=== PATIENT | female | born 1985 | race Hispanic/Latino ===

== ENCOUNTER 2022-05-02 22:41 | Emergency (ER) | payer MEDICAID ==
[~2022-05-02] VITALS: Ht 157.5 cm; Wt 100.9 kg
[~2022-05-02 22:41] MED LIST: AMOXICILLIN500 MG PO; IBUPROFEN600 MG PO; PRENATABS PO; PRENATAL PO
[2022-05-02 23:01] VITALS: BP 137/67
[2022-05-02 23:16] VITALS: BP 121/68
[2022-05-02 23:31] VITALS: BP 128/72
[2022-05-02 23:46] VITALS: BP 126/62
[2022-05-02 23:51] LABS: BASO% 0.2 % (0-3); EOS% 1.7 % (0-8); HEMATOCRIT 37.6 % (37.0-47.0); HEMOGLOBIN 12.1 g/dl (12.0-16.0); IMMATURE GRANULOCYTES 0.8 % (0.0-5.0); LYMPH% 18.1 % (15-41); MEAN CELL VOLUME 89.7 fL CALC (80.0-100.0); MEAN CORPUSCULAR HGB 28.9 pG CALC (26.0-32.0); MEAN CORPUSCULAR HGB CONC 32.2 g/dL CAL (32.0-36.0); MONO% 6.9 % (2-13); NEUT# 6.69 thou/uL (2.00-7.15); NEUT% 72.3 % (42-76); RED BLOOD COUNT 4.19 mill/uL (4.20-5.60); RED CELL DISTRI WIDTH 12.8 % (11.5-15.5)
[2022-05-03 00:01] VITALS: BP 110/58
[2022-05-03 00:02] LABS: ALBUMIN 4.2 g/dL (3.2-5.0); ALKALINE PHOSPHATASE 162 u/l (38-126); ANION GAP 11 (6-22 (CALC)); BILIRUBIN, TOTAL 0.3 mg/dL (0.0-1.4); BUN 11 mg/dL (7-17); BUN/CREATININE RATIO 16 (12-20 (CALC)); CARBON DIOXIDE 25 mmol/l (22-30); CHLORIDE 106 mmol/l (95-108); CREATININE 0.7 mg/dL (0.5-1.0); GFR FOR AFR.AMER. > 60 ML/MIN (>=60 (CALC)); GFR OTHER RACES > 60 ML/MIN (>=60 (CALC)); LIPASE 80 u/l (23-300); POTASSIUM 3.6 mmol/l (3.5-5.1); SGOT/AST 38 u/l (14-36); SODIUM 139 mmol/l (137-146); TOTAL PROTEIN 7.6 g/dL (6.3-8.2)
[2022-05-03] MEDS ORDERED: PEPCID40 MG PO (01:43)
[2022-05-03 02:36] VITALS: BP 110/58
== END 2022-05-03 02:40 | disposition home or self-care (01) ==
LOC: ED 22:41
PROVIDERS: Family Medicine
DX: K29.70 Gastritis, unspecified, without bleeding (principal); K29.80 Duodenitis without bleeding
CPT/HCPCS: Q9967

== ENCOUNTER 2024-01-07 09:50 | Inpatient (IN) | payer MEDICAID ==
[2024-01-07] VITALS (14 sets, daily range): BP systolic 86–119; BP diastolic 33–69
[~2024-01-07] VITALS: Ht 157.5 cm; Wt 97.2 kg
[~2024-01-07 09:50] MED LIST changes: +PEPCID20 MG PO; +PEPCID40 MG PO
--- NOTE | 2024-01-07 09:53 | NUR ---
PT WALKED BACK TO ER ROOM 9 WITH A STEADY GAIT, NO DISTRESS NOTED
[2024-01-07 10:15] LABS: BASO% 0.1 % (0-3); HEMATOCRIT 38.7 % (37.0-47.0); HEMOGLOBIN 13.1 g/dl (12.0-16.0); IMMATURE GRANULOCYTES 0.5 % (0.0-5.0); LYMPH% 2.9 % (15-41); MEAN CELL VOLUME 86.6 fL CALC (80.0-100.0); MEAN CORPUSCULAR HGB 29.3 pG CALC (26.0-32.0); MEAN CORPUSCULAR HGB CONC 33.9 g/dL CAL (32.0-36.0); NEUT# 13.09 thou/uL (2.00-7.15); NEUT% 93.5 % (42-76); RED BLOOD COUNT 4.47 mill/uL (4.20-5.60); RED CELL DISTRI WIDTH 12.8 % (11.5-15.5)
[2024-01-07] MEDS ORDERED: cefTRIAXone SODIUM 2 GM in SODIUM CHLORIDE 0.9% 100 ML IV ONE (10:15)
[2024-01-07] MEDS ORDERED: SODIUM CHLORIDE 0.9% 1,000 ML IV ONE ×2 (10:20)
[2024-01-07] MEDS ORDERED: KETOROLAC TROMETHAMINE 30 MG/ML SDV IV ONE (10:20)
[2024-01-07] MEDS ORDERED: ONDANSETRON HCl 4 MG/2 ML SDV IV ONE (10:20)
[2024-01-07 10:28] LABS: CREATININE 0.8 mg/dL (0.5-1.0); POTASSIUM 3.3 mmol/l (3.5-5.1)
[2024-01-07 10:29] LABS: ALBUMIN 3.5 g/dL (3.2-5.0); BILIRUBIN, TOTAL 1.8 mg/dL (0.02-1.3); TOTAL PROTEIN 6.4 g/dL (6.3-8.2)
--- NOTE | 2024-01-07 10:35 | NUR ---
PT IN BED, VSS, CALL LIGHT WITHIN REACH, BLOOD CULTURES COLLECTED
--- NOTE | 2024-01-07 11:22 | NUR ---
PT BACK FROM CT, PTS FRIEND AT BEDSIDE, PT DENIES ANY NEEDS, VSS, CALL LIGHT WITHIN REACH, URINE SAMPLE COLLECTED
[2024-01-07 11:47] LABS: URINE BILIRUBIN - DIPSTICK Negative (NEGATIVE); URINE BLOOD DIPSTICK Moderate (NEGATIVE); URINE GLUCOSE - DIPSTICK 500 mg/dL (NEGATIVE); URINE KETONE Negative (NEGATIVE); URINE LEUK ESTERASE Trace (NEGATIVE); URINE PH 6.5 (4.5-8.0); URINE PROTEIN - DIPSTICK 100 mg/dL (NEG-TRACE); URINE UROBILINOGEN - DIPSTICK >=8.0 E.U./dL (0.2)
[2024-01-07 11:59] LABS: URINE BACTERIA MODERATE hpf; URINE COLOR Dark yellow; URINE EPITHELIAL CELLS MODERATE EPI/hpf (0-FEW); URINE NITRITE - DIPSTICK Positive (Negative); URINE WBC 20-50 WBC/hpf (0-5)
[2024-01-07] MEDS ORDERED: MAGNESIUM HYDROXIDE 30 ML UDC PO PRN (12:20)
[2024-01-07] MEDS ORDERED: VANCOMYCIN HCL 1 GM in SODIUM CHLORIDE 0.9% 250 ML IV ONE (12:20)
[2024-01-07] MEDS ORDERED: ACETAMINOPHEN 325 MG/TAB PO PRN (12:20)
[2024-01-07] MEDS ORDERED: SODIUM CHLORIDE 0.9% 1,000 ML IV PRN (12:20)
[2024-01-07] MEDS ORDERED: ONDANSETRON HCl 4 MG/2 ML SDV IV PRN (12:20)
[2024-01-07] MEDS ORDERED: KETOROLAC TROMETHAMINE 15 MG/ML SDV IV PRN (12:20)
--- NOTE | 2024-01-07 13:27 | NUR ---
CALLED [facility] WITH [facility], GAVE PT INFO, PT TO BE TRANSPORTED TO [facility] BED 267 ON TELE BOX 08
--- NOTE | 2024-01-07 13:45 | NUR ---
PT TRANSPORTED TO [facility] VIA WHEELCHAIR, PT ON TELE BOX 8, PT TOOK ALL BELONGINGS WITH HER AT TIME OF TRANSPORT
[2024-01-07] MEDS ORDERED: HYDROmorphone HCL 2 MG/AMP IV PRN (14:05)
[2024-01-07] MEDS ORDERED: INSULIN LISPRO 100 UNITS/ML ML SC SCH (17:00)
--- NOTE | 2024-01-07 20:45 | NUR ---
PT RESTING IN BED STATING THAT SHE IS HAVING FLANK PAIN 5/10. NURSE PROVIDED IV PAIN MEDICATION. IV SITE FLUSHED WORKING PROPERLY IV FLUIDS INFUSION ONGOING. PT STATING SHE IS STILL HAVING SLIGHT PAIN WHEN URINATING STILL. PT ST ON HEART MONITOR OTHER VS WNL ON RA LUNGS CLEAR. SKIN INTACT NO EDEMA. CALL LIGHT WITHIN REACH. PLAN OF CARE ONGOING.
[2024-01-07] MEDS ORDERED: ENOXAPARIN SODIUM 40 MG/0.4 ML SYR SC SCH (21:00)
--- NOTE | 2024-01-07 23:45 | NUR ---
Nurse was notified about patient blood pressure being 89/41.
[2024-01-08 00:26] VITALS: BP 92/62
--- NOTE | 2024-01-08 01:08 | NUR ---
PT RESTING IN BED NO PAIN REPORTED AT THIS TIME. PT HAD ONLY URINATED 200ML DARK ORANGE. NURSE BLADDER SCAN PT WHICH ONLY SHOWED 87ML. PT STATED FEELING NAUSEATED NURSED PROVIDED ZOFRAN IV. BP SOFT BUT WNL OTHER VS WNL. IV FLUIDS ONGOING. CALL LIGHT WIHTIN REACH. PLAN OF CARE ONGOING.
--- NOTE | 2024-01-08 04:00 | NUR ---
PT RESTING NO DISTRESS NOTED ON EXAM. IV SITE CHECKED WORKING PROPERLY. CALL LIGHT WITHIN REACH. PLAN OF CARE ONGOING.
[2024-01-08 05:13] VITALS: BP 102/63
[2024-01-08 05:30] LABS: BASO% 0.1 % (0-3); IMMATURE GRANULOCYTES 0.4 % (0.0-5.0); LYMPH% 4.5 % (15-41); MEAN CORPUSCULAR HGB 29.9 pG CALC (26.0-32.0); MEAN CORPUSCULAR HGB CONC 33.6 g/dL CAL (32.0-36.0); MONO% 4.8 % (2-13); NEUT# 12.53 thou/uL (2.00-7.15); NEUT% 90.2 % (42-76); RED BLOOD COUNT 3.64 mill/uL (4.20-5.60); RED CELL DISTRI WIDTH 13.2 % (11.5-15.5)
[2024-01-08 05:36] LABS: HEMATOCRIT 32.4 % (37.0-47.0); HEMOGLOBIN 10.9 g/dl (12.0-16.0)
[2024-01-08 05:40] LABS: BILIRUBIN, TOTAL 1.1 mg/dL (0.02-1.3); CHOLESTEROL HDL RATIO 3.6 (<4.4 (CALC)); CREATININE 0.8 mg/dL (0.5-1.0); MAGNESIUM 1.8 mg/dL (1.6-2.3); POTASSIUM 3.1 mmol/l (3.5-5.1)
[2024-01-08 05:46] LABS: ALBUMIN 2.5 g/dL (3.2-5.0)
[2024-01-08 07:32] VITALS: BP 99/53
--- NOTE | 2024-01-08 07:33 | NUR ---
SHIFT CHANGE REPORT, PT AWAKE ALERT AND ORIENTED C/O RIGHT FLANK PAIN @ 7/10,IVF INFUSING, TELE MONITOR IN PLACE, CALL BELLIN REACH AND BED LOCKED IN LOWEST POSITION.
--- NOTE | 2024-01-08 07:35 | NUR ---
Preliminary blood culture results of 4/4 bottles growing gram negative rods called to Maggie Bonds APRN. No new orders at this time.
[2024-01-08] MEDS ORDERED: CEFEPIME HYDROCHLORIDE 2 GM in SODIUM CHLORIDE 0.9% 100 ML IV SCH (08:00)
[2024-01-08] MEDS ORDERED: cefTRIAXone SODIUM 2 GM in SODIUM CHLORIDE 0.9% 100 ML IV SCH (09:00)
[2024-01-08] MEDS ORDERED: POTASSIUM CHLORIDE 20 MEQ/TAB PO SCH (09:00)
[2024-01-08 10:44] VITALS: BP 91/48
--- NOTE | 2024-01-08 14:00 | NUR ---
TEMP ELEVATED AT THIS TIME @ 103.3 ORALLY, REPORTS HEDACHE AT 06/16, MEDICATED AND MD INFORMED.
--- NOTE | 2024-01-08 14:37 | NUR ---
HR RATE UP IN 120'S, ON EVALUATION PT AMBULATING IN ROOM, EACH TIME SHE AMBULATES TO BR HER SHE BECOMES TACHY CARDIC, MEDICAL TEAM AWARE.
[2024-01-08] MEDS ORDERED: PHENAZOPYRIDINE HCL 100 MG/TAB PO SCH (15:30)
[2024-01-08 15:59] VITALS: BP 90/44
--- NOTE | 2024-01-08 16:00 | NUR ---
FEELING BETTER AT THIS TIME AND AMBULATING IN ROOM.
[2024-01-08 19:18] VITALS: BP 114/67
--- NOTE | 2024-01-08 21:00 | NUR ---
PT RESTING IN BED STATING SHE IS HAVING RIGHT FLANK PAIN 7/10 ANDD NAUSEA. NURSE PROVIDED PAIN MEDICATION AND ZOFRAN. IV SITE FLUSHED WORKING PROPERLY FLUID INFUSION ONGOING. VS WNL ON RA LUNGS CLEAR. SKIN INTACT AND NO EDEMA NOTED. PT STILL HAVING DISCOMFORT WITH URINATION. CALL LIGHT WITHIN REACH. PLAN OF CARE ONGOING. PROVIDED LIGHT SNACKS.
[2024-01-09] VITALS (8 sets, daily range): BP systolic 96–126; BP diastolic 44–75
--- NOTE | 2024-01-09 00:23 | NUR ---
PT AMBULATING NO RESTROOM NO DISTRESS NOTED. PT STATED NOT HAVING NAUSEA ANYMORE. IV SITE CHECKED WORKING PROPERLY.
--- NOTE | 2024-01-09 04:00 | NUR ---
PT RESTING NO DISTRESS NOTED AT THIS TIME. VS WNL ON RA NO PAIN REPORTED. IV FLUIDS ONGOING WORKING PROPERLY. CALL LIGHT WITHIN REACH. PLAN OF CARE ONGOING.
[2024-01-09 05:45] LABS: ALBUMIN 2.6 g/dL (3.2-5.0); BILIRUBIN, TOTAL 1.1 mg/dL (0.02-1.3); CREATININE 0.7 mg/dL (0.5-1.0); MAGNESIUM 2.2 mg/dL (1.6-2.3); TOTAL PROTEIN 5.4 g/dL (6.3-8.2)
[2024-01-09 05:47] LABS: POTASSIUM 3.4 mmol/l (3.5-5.1)
[2024-01-09 05:54] LABS: BASO% 0.1 % (0-3); EOS% 0.1 % (0-8); HEMATOCRIT 32.1 % (37.0-47.0); HEMOGLOBIN 10.7 g/dl (12.0-16.0); IMMATURE GRANULOCYTES 0.5 % (0.0-5.0); LYMPH% 6.8 % (15-41); MEAN CELL VOLUME 89.2 fL CALC (80.0-100.0); MEAN CORPUSCULAR HGB 29.7 pG CALC (26.0-32.0); MEAN CORPUSCULAR HGB CONC 33.3 g/dL CAL (32.0-36.0); MONO% 5.8 % (2-13); NEUT# 8.55 thou/uL (2.00-7.15); NEUT% 86.7 % (42-76); RED BLOOD COUNT 3.6 mill/uL (4.20-5.60); RED CELL DISTRI WIDTH 13.7 % (11.5-15.5)
--- NOTE | 2024-01-09 07:37 | NUR ---
patient a/o x3; room air; breathing unlabored and even; denied any n/d/v at this time; patient states her pain is 4/10; iv site clean and intact on RAC running with NS @100; assessment completed; tele leads are attached and working with no issues; no s.s of distress noticed; call light within reach, verbalized understanding on how to use, personal items within reach, bed in lowest postion
--- NOTE | 2024-01-09 12:52 | NUR ---
patient resting in bed; room air; breathing unlabored and even; denied any n/d/v/at this time; denied needing anything; denied any pain; iv site clean and intact running with NS @100; no s/s of distress at this time; call light within reach,verbalized understanding on how to use, personal items within reach; bed in lowest postion
--- NOTE | 2024-01-09 13:06 | NUR ---
patient glucose is 117, no coverage needed
[2024-01-09] MEDS ORDERED: cefTRIAXone SODIUM 2 GM in SODIUM CHLORIDE 0.9% 100 ML IV SCH (14:00)
--- NOTE | 2024-01-09 16:20 | NUR ---
pateint resting in bed; room air; breathing unlabored and even; denied any pain;denied any v/d medicated patient with zofran per EMAR: iv site clean and intact running with antibodic per EMAR: no s/s of distress at this time; tele leads intact and running; call light within reach, verbalized understanding on how to use, personal items within reach, bed in lowest postion
--- NOTE | 2024-01-09 19:20 | NUR ---
PATIENT IN ROOM RESTING IN BED WATCHING TV. BED SIDE ASSESSMENT COMPLETE. PATIENT IS ANDORRAN SPEAKING. RESPIRATION EQUAL AND UNLABORED. PATIENT BOWEL SOUNDS PRESENT. PERIPHERAL PULSES STRONG EQUAL. PATIENT COMPLAINS OF A MILD HEADACHE, WILL CHECH EMAR. BED AT LOWEST POSITION. CALL LIGHT WITH IN REACH.
--- NOTE | 2024-01-09 23:30 | NUR ---
PATIENT IN ROOM AWAKE. PATIENT HAS EQUAL UNLABORED RESPIRATIONS, NO VISUAL SIGNS OF DISTRESS. BED AT LOWEST PASITION. CALL LIGHT WITH IN REACH.
--- NOTE | 2024-01-10 04:10 | NUR ---
PATIENT IN BED WITH EYES CLOSED. PATIETN HAS EQUAL UN LABORED BREATHING. NO VISUAL SIGNS OF DISTRESS. BED AT LOWEST POSITION. CALL LIGHT WITH IN REACH.
[2024-01-10 04:50] VITALS: BP 103/38
[2024-01-10 05:06] VITALS: BP 103/38
[2024-01-10 05:48] LABS: BASO% 0.1 % (0-3); EOS% 0.4 % (0-8); HEMATOCRIT 32.3 % (37.0-47.0); IMMATURE GRANULOCYTES 0.8 % (0.0-5.0); LYMPH% 8.7 % (15-41); MEAN CELL VOLUME 86.1 fL CALC (80.0-100.0); MEAN CORPUSCULAR HGB 29.3 pG CALC (26.0-32.0); MEAN CORPUSCULAR HGB CONC 34.1 g/dL CAL (32.0-36.0); MONO% 7.9 % (2-13); NEUT# 8.34 thou/uL (2.00-7.15); NEUT% 82.1 % (42-76); RED BLOOD COUNT 3.75 mill/uL (4.20-5.60); RED CELL DISTRI WIDTH 13.6 % (11.5-15.5)
[2024-01-10 06:01] LABS: ALBUMIN 2.5 g/dL (3.2-5.0); BILIRUBIN, TOTAL 0.8 mg/dL (0.02-1.3); CREATININE 0.6 mg/dL (0.5-1.0); MAGNESIUM 2.1 mg/dL (1.6-2.3); POTASSIUM 3.1 mmol/l (3.5-5.1); TOTAL PROTEIN 5.1 g/dL (6.3-8.2)
[2024-01-10 06:55] VITALS: BP 111/53
[2024-01-10] MEDS ORDERED: POTASSIUM CHLORIDE 20 MEQ/TAB PO SCH (08:00)
--- NOTE | 2024-01-10 08:31 | NUR ---
patient a/o x3; room air; breathing unlabored and even; denied any n/d/v at this time; states she does have a headache, medicated per EMAR; patient is malay speaking, family in room to help translate; tele leads intact; iv site clean and intact running with NS @100; no complaints outside of headache; no s.s of distress; call light within reach, verablized understanding on how to use, personal items in reach, educated patient on why the potassium was replaced; bed in lowest postion; saftey measures in place
[2024-01-10 10:36] VITALS: BP 107/66
[2024-01-10] MEDS ORDERED: ZOFRAN4 MG/TAB PO (10:51)
[2024-01-10] MEDS ORDERED: BACTRIM DS1 TAB PO (10:51)
[2024-01-10] MEDS ORDERED: TORADOL PO (10:52)
--- NOTE | 2024-01-10 12:03 | NUR ---
IV site discontinued, cath intact. No edema , no redness, voices no discomfort. Discharge instructions given. Patient verbalizes understanding of same. Discharged in stable condition via Ambulatory to Home with family. All belongings sent with pt.
== END 2024-01-10 12:06 | disposition home or self-care (01) | DRG 872 ==
LOC: ED 09:50 → ED-I 11:50 → ED 12:14 → MS2 12:15
PROVIDERS: Family Medicine; Nurse Practitioner Family; ADMIT Student in an Organized Health Care Education/Training Program; ATTEND Student in an Organized Health Care Education/Training Program
DX: A41.51 Sepsis due to Escherichia coli [E. coli] (principal); N12 Tubulo-interstitial nephritis, not specified as acute or chronic; E11.9 Type 2 diabetes mellitus without complications; E66.9 Obesity, unspecified; K76.0 Fatty (change of) liver, not elsewhere classified; R16.0 Hepatomegaly, not elsewhere classified; Z20.822 Contact with and (suspected) exposure to COVID-19
CPT/HCPCS: J0692; J1650; Q9967